=== PATIENT | male | born 1935 | race Caucasian/White ===

== ENCOUNTER → 2016-07-23 | Outpatient (CLI) | payer MEDICARE, OTHER ==
[~2016-07-23] MED LIST: AMIODARONE HCL100 MG PO; AMIODARONE HCL200 MG PO; APIDRA SOL100 UNIT/1 SUBCUT; APIDRA100 UNIT/1 SUBCUT; ARTIFICIAL TEA1 EACH EYELF; AVODART0.5 MG PO; CLARITIN10 MG PO; COMTAN200 MG PO; COREG12.5 MG PO; COREG6.25 MG PO; CUBICIN500 MG IV; DIOVAN160 MG PO; DIOVAN80 MG PO; DUONEB 3.0-0.5 M3 ML INH; ELIQUIS5 MG PO; EXELON4.6 MG TOP; EXELON9.5 MG TOP; FLOMAX0.4 MG PO; LANTUS100 UNIT/1 SUBCUT; LASIX40 MG PO; LEXAPRO10 MG PO; LIPITOR80 MG PO; MIRALAX17 GM PO; NITROSTAT0.4 MG SL; NORVASC2.5 MG PO; NOVOLOG FL100 UNIT/1 SUBCUT; OMNICEF300 MG PO; PERCOCET 325-51 TAB PO; PERCOCET 5-3251 EACH PO; SENNA-S TABLET1 EACH PO; SINEMET 25-1001 TAB PO; SPIRIVA RESPIMAT4 GM INH; SPIRIVA18 MCG INH; SYMBICORT 160-4.6 GM INH; TRIAMCINOLONE A15 GM TOP; TYLENOL500 MG PO; ULTRAM50 MG PO; VITAMIN D31000 UNI1 PO; [UNRECOGNIZED DRUG - OTHER] EYELF
== END | disposition short-term general hospital (02) ==
LOC: CLCARD 11:04
DX: I48.2 Chronic atrial fibrillation (principal); I25.10 Atherosclerotic heart disease of native coronary artery without angina pectoris; E78.5 Hyperlipidemia, unspecified; E11.9 Type 2 diabetes mellitus without complications; I12.0 Hypertensive chronic kidney disease with stage 5 chronic kidney disease or end stage renal disease; N18.9 Chronic kidney disease, unspecified; G47.30 Sleep apnea, unspecified; J44.9 Chronic obstructive pulmonary disease, unspecified; G20 Parkinson's disease; E66.01 Morbid (severe) obesity due to excess calories; Z79.899 Other long term (current) drug therapy